=== PATIENT | female | born 1940 | race Native Hawaiian/Other Pacific Islander ===

== ENCOUNTER 2020-08-06 08:17 | Outpatient (CLI) | payer OTHER ==
[2020-08-06 08:48] LABS: PLATELET COUNT 295 K/uL (152-353)
[2020-08-06 09:04] LABS: POTASSIUM 3.9 mmol/L (3.6-5.2)
== END 2020-08-06 21:41 | disposition home or self-care (01) ==
LOC: LABW 08:17
PROVIDERS: ATTEND Internal Medicine Nephrology
DX: E55.9 Vitamin D deficiency, unspecified (principal); E78.49 Other hyperlipidemia; D64.9 Anemia, unspecified; I12.9 Hypertensive chronic kidney disease with stage 1 through stage 4 chronic kidney disease, or unspecified chronic kidney disease; N18.30 Chronic kidney disease, stage 3 unspecified; N28.89 Other specified disorders of kidney and ureter; Z28.21 Immunization not carried out because of patient refusal
CPT/HCPCS: 36415; 80053; 81000; 82306; 82570; 82610; 82728; 83540; 83550; 83970; 84155; 85027; 87086; 87088

== ENCOUNTER 2021-02-14 09:05 | Outpatient (CLI) | payer OTHER ==
[2021-02-14 09:18] LABS: PLATELET COUNT 317 K/uL (152-353)
[2021-02-14 09:26] LABS: POTASSIUM 4.2 mmol/L (3.6-5.2)
== END 2021-02-14 19:01 | disposition home or self-care (01) ==
LOC: LABW 09:05
PROVIDERS: ATTEND Internal Medicine Nephrology
DX: E55.9 Vitamin D deficiency, unspecified (principal); R78.5 Finding of other psychotropic drug in blood; D64.9 Anemia, unspecified; I10 Essential (primary) hypertension; N18.31 Chronic kidney disease, stage 3a; R73.01 Impaired fasting glucose; E03.9 Hypothyroidism, unspecified
CPT/HCPCS: 36415; 80053; 80061; 81000; 82306; 82728; 83036; 83540; 83550; 83735; 83970; 84443; 85027

== ENCOUNTER 2021-03-30 08:58 | Emergency (ER) | payer OTHER ==
[~2021-03-30] VITALS: Ht 152.4 cm; Wt 54.4 kg
[2021-03-30 08:58] VITALS: TEMP 96.2
[2021-03-30 11:00] VITALS: BP 164/64
== END 2021-03-30 11:10 | disposition home or self-care (01) ==
LOC: ED 08:58
DX: S16.1XXA Strain of muscle, fascia and tendon at neck level, initial encounter (principal); S42.012A Anterior displaced fracture of sternal end of left clavicle, initial encounter for closed fracture; V59.40XA Driver of pick-up truck or van injured in collision with unspecified motor vehicles in traffic accident, initial encounter; Y92.89 Other specified places as the place of occurrence of the external cause
CPT/HCPCS: 99283

== ENCOUNTER 2021-08-18 07:52 | Outpatient (CLI) | payer OTHER ==
[2021-08-18 08:09] LABS: PLATELET COUNT 280 K/uL (152-353)
[2021-08-18 08:44] LABS: POTASSIUM 3.8 mmol/L (3.6-5.2)
== END 2021-08-18 19:05 | disposition home or self-care (01) ==
LOC: LABW 07:52
PROVIDERS: ATTEND Internal Medicine Nephrology
DX: E55.9 Vitamin D deficiency, unspecified (principal); E78.49 Other hyperlipidemia; D64.9 Anemia, unspecified; N18.31 Chronic kidney disease, stage 3a; N28.89 Other specified disorders of kidney and ureter; Z28.21 Immunization not carried out because of patient refusal; I12.9 Hypertensive chronic kidney disease with stage 1 through stage 4 chronic kidney disease, or unspecified chronic kidney disease
CPT/HCPCS: 36415; 80053; 81000; 82306; 82607; 82728; 82746; 83540; 83550; 83970; 85027

== ENCOUNTER 2021-10-31 07:48 | Outpatient (CLI) | payer OTHER ==
[2021-10-31 08:29] LABS: PLATELET COUNT 284 K/uL (152-353)
== END 2021-10-31 21:08 | disposition home or self-care (01) ==
LOC: LABW 07:48
PROVIDERS: ATTEND Nurse Practitioner
DX: I10 Essential (primary) hypertension (principal); E78.2 Mixed hyperlipidemia; E55.9 Vitamin D deficiency, unspecified; N39.0 Urinary tract infection, site not specified; R22.41 Localized swelling, mass and lump, right lower limb; R94.4 Abnormal results of kidney function studies
CPT/HCPCS: 36415; 80053; 80061; 81002; 81015; 82043; 82306; 83735; 85027; 87086; 87088

== ENCOUNTER 2021-12-16 07:44 | Outpatient (CLI) | payer OTHER | END 2021-12-16 19:01 | disposition home or self-care (01) | LOC: LAB 07:44 | PROVIDERS: ATTEND Internal Medicine Nephrology | DX: E46 Unspecified protein-calorie malnutrition (principal); E55.9 Vitamin D deficiency, unspecified; E78.49 Other hyperlipidemia; D64.89 Other specified anemias; N18.31 Chronic kidney disease, stage 3a; N28.89 Other specified disorders of kidney and ureter; Z28.21 Immunization not carried out because of patient refusal; I12.9 Hypertensive chronic kidney disease with stage 1 through stage 4 chronic kidney disease, or unspecified chronic kidney disease | CPT/HCPCS: 80069; 83970 ==

== ENCOUNTER 2021-12-18 07:33 | Outpatient (CLI) | payer OTHER | END 2021-12-18 20:52 | disposition home or self-care (01) | LOC: LAB 07:33 | PROVIDERS: ATTEND Internal Medicine Nephrology | DX: E46 Unspecified protein-calorie malnutrition (principal); E55.9 Vitamin D deficiency, unspecified; E78.49 Other hyperlipidemia; D64.89 Other specified anemias; N18.31 Chronic kidney disease, stage 3a; N28.89 Other specified disorders of kidney and ureter; Z28.21 Immunization not carried out because of patient refusal; I12.9 Hypertensive chronic kidney disease with stage 1 through stage 4 chronic kidney disease, or unspecified chronic kidney disease | CPT/HCPCS: 81002; 82570; 84156 ==

== ENCOUNTER 2022-06-25 08:02 | Outpatient (CLI) | payer OTHER ==
[2022-06-25 08:16] LABS: PLATELET COUNT 311 K/uL (152-353)
== END 2022-06-25 19:21 | disposition home or self-care (01) ==
LOC: LAB 08:02
PROVIDERS: ATTEND Internal Medicine Nephrology
DX: E46 Unspecified protein-calorie malnutrition (principal); E55.9 Vitamin D deficiency, unspecified; E78.49 Other hyperlipidemia; D64.89 Other specified anemias; N18.4 Chronic kidney disease, stage 4 (severe); N28.89 Other specified disorders of kidney and ureter; Z28.21 Immunization not carried out because of patient refusal; I12.9 Hypertensive chronic kidney disease with stage 1 through stage 4 chronic kidney disease, or unspecified chronic kidney disease
CPT/HCPCS: 36415; 80069; 81000; 82306; 82570; 83970; 84156; 85027; 87088

== ENCOUNTER 2022-12-25 08:02 | Outpatient (CLI) | payer OTHER ==
[2022-12-25 08:37] LABS: PLATELET COUNT 294 K/uL (152-353)
== END 2022-12-25 19:13 | disposition home or self-care (01) ==
LOC: LABW 08:02
PROVIDERS: ATTEND Internal Medicine Nephrology
DX: E46 Unspecified protein-calorie malnutrition (principal); E55.9 Vitamin D deficiency, unspecified; E78.49 Other hyperlipidemia; D64.89 Other specified anemias; N18.4 Chronic kidney disease, stage 4 (severe); N28.89 Other specified disorders of kidney and ureter; Z28.21 Immunization not carried out because of patient refusal; I12.9 Hypertensive chronic kidney disease with stage 1 through stage 4 chronic kidney disease, or unspecified chronic kidney disease; R94.4 Abnormal results of kidney function studies; R22.41 Localized swelling, mass and lump, right lower limb
CPT/HCPCS: 36415; 80053; 80061; 81000; 82306; 82570; 82610; 83970; 84100; 84156; 85027